=== PATIENT | female | born 1950 | race Asian ===

== ENCOUNTER 2017-08-24 10:26 | Outpatient (CLI) | payer BC | END 2017-08-24 18:02 | disposition home or self-care (01) | LOC: MAMMO 10:26 | DX: Z12.31 Encounter for screening mammogram for malignant neoplasm of breast (principal) ==

== ENCOUNTER 2018-03-10 13:33 | Outpatient (CLI) | payer BC ==
[2018-03-10 14:58] LABS: PARTIAL THROMBOPLASTIN TIME 25.4 SECONDS (24.5-33.6)
== END 2018-03-10 19:41 | disposition home or self-care (01) ==
LOC: LAB 13:33
PROVIDERS: Family Medicine
DX: Z01.89 Encounter for other specified special examinations (principal); Z79.82 Long term (current) use of aspirin
CPT/HCPCS: 85610; 85730

== ENCOUNTER 2018-03-16 14:07 | Outpatient (CLI) | payer BC | END 2018-03-16 23:33 | disposition home or self-care (01) | LOC: RAD 14:07 | DX: Z01.89 Encounter for other specified special examinations (principal) ==

== ENCOUNTER 2018-03-17 09:49 | Outpatient (CLI) | payer BC | END 2018-03-17 21:19 | disposition home or self-care (01) | LOC: MAMMO 09:49 | DX: R92.8 Other abnormal and inconclusive findings on diagnostic imaging of breast (principal); M81.0 Age-related osteoporosis without current pathological fracture; G56.01 Carpal tunnel syndrome, right upper limb | CPT/HCPCS: 95887; 95909 ==

== ENCOUNTER 2018-12-08 10:13 | Outpatient (CLI) | payer BC | END 2018-12-08 19:19 | disposition home or self-care (01) | LOC: MAMMO 10:13 | DX: R92.8 Other abnormal and inconclusive findings on diagnostic imaging of breast (principal) ==

== ENCOUNTER 2019-03-17 15:50 | Outpatient (CLI) | payer BC | END 2019-03-17 15:53 | disposition short-term general hospital (02) | LOC: AMB 15:50 | DX: M54.5 Low back pain (principal); V89.2XXA Person injured in unspecified motor-vehicle accident, traffic, initial encounter; Y92.413 State road as the place of occurrence of the external cause | CPT/HCPCS: A0425; A0429 ==

== ENCOUNTER 2019-03-17 15:56 | Emergency (ER) | payer BC ==
[~2019-03-17] VITALS: Ht 168.9 cm; Wt 101.2 kg
[2019-03-17 19:50] VITALS: BP 146/85; TEMP 98
== END 2019-03-17 19:51 | disposition home or self-care (01) ==
LOC: ED 15:56
DX: M51.26 Other intervertebral disc displacement, lumbar region (principal); S39.012A Strain of muscle, fascia and tendon of lower back, initial encounter; V44.6XXA Car passenger injured in collision with heavy transport vehicle or bus in traffic accident, initial encounter; Y92.89 Other specified places as the place of occurrence of the external cause
CPT/HCPCS: 99283

== ENCOUNTER 2019-05-11 10:32 | Outpatient (CLI) | payer OTHER, BC | END 2019-05-11 23:22 | disposition home or self-care (01) | LOC: MRI 10:32 | DX: M54.6 Pain in thoracic spine (principal); M54.17 Radiculopathy, lumbosacral region ==

== ENCOUNTER 2019-07-14 10:21 | Outpatient (CLI) | payer BC | END 2019-07-14 22:16 | disposition home or self-care (01) | LOC: MAMMO 10:21 | DX: R92.8 Other abnormal and inconclusive findings on diagnostic imaging of breast (principal) ==

== ENCOUNTER 2020-04-30 08:07 | Day surgery (SDC) | payer BC ==
[~2020-04-30] VITALS: Ht 30.5 cm; Wt 0.5 kg
== END 2020-04-30 08:50 | disposition home or self-care (01) ==
LOC: OR 08:07
PROC: 3E0R33Z Introduction of Anti-inflammatory into Spinal Canal, Percutaneous Approach (ICD-10-PCS; principal; 2020-04-30)
PROC: B01BYZZ Fluoroscopy of Spinal Cord using Other Contrast (ICD-10-PCS; 2020-04-30)
DX: M51.16 Intervertebral disc disorders with radiculopathy, lumbar region (principal)
CPT/HCPCS: J1020

== ENCOUNTER 2020-06-10 10:29 | Outpatient (CLI) | payer BC | END 2020-06-10 23:41 | disposition home or self-care (01) | LOC: RAD 10:29 | DX: M25.561 Pain in right knee (principal) ==

== ENCOUNTER 2020-07-08 09:28 | Outpatient (CLI) | payer BC | END 2020-07-08 23:23 | disposition home or self-care (01) | LOC: MRI 09:28 | DX: M25.461 Effusion, right knee (principal) ==

== ENCOUNTER 2020-08-08 14:27 | Outpatient (CLI) | payer BC | END 2020-08-08 19:07 | disposition home or self-care (01) | LOC: MAMMO 14:27 | PROVIDERS: ATTEND Nurse Practitioner Family | DX: Z12.31 Encounter for screening mammogram for malignant neoplasm of breast (principal) ==

== ENCOUNTER 2020-09-19 10:59 | Outpatient (CLI) | payer OTHER | END 2020-09-19 21:24 | disposition home or self-care (01) | LOC: MAMMO 10:59 | PROVIDERS: ATTEND Nurse Practitioner Family | DX: R92.8 Other abnormal and inconclusive findings on diagnostic imaging of breast (principal) ==

== ENCOUNTER 2021-07-15 12:45 | Outpatient (CLI) | payer OTHER | END 2021-07-15 19:24 | disposition home or self-care (01) | LOC: RESP 12:45 | PROVIDERS: ATTEND Family Medicine | DX: G56.03 Carpal tunnel syndrome, bilateral upper limbs (principal); G56.20 Lesion of ulnar nerve, unspecified upper limb | CPT/HCPCS: 95885; 95911 ==

== ENCOUNTER 2021-08-28 10:59 | Outpatient (CLI) | payer OTHER | END 2021-08-28 19:26 | disposition home or self-care (01) | LOC: MAMMO 10:59 | PROVIDERS: ATTEND Family Medicine | DX: Z12.31 Encounter for screening mammogram for malignant neoplasm of breast (principal) ==

== ENCOUNTER 2021-10-09 11:29 | Outpatient (CLI) | payer OTHER | END 2021-10-09 21:22 | disposition home or self-care (01) | LOC: RAD 11:29 | PROVIDERS: ATTEND Nurse Practitioner Family | DX: Z01.818 Encounter for other preprocedural examination (principal) ==

== ENCOUNTER 2021-12-18 10:12 | Outpatient (CLI) | payer OTHER | END 2021-12-18 21:26 | disposition home or self-care (01) | LOC: RAD 10:12 | PROVIDERS: ATTEND Physician Assistant | DX: M25.562 Pain in left knee (principal) ==

== ENCOUNTER 2022-02-13 09:54 | Outpatient (CLI) | payer OTHER | END 2022-02-13 20:26 | disposition home or self-care (01) | LOC: MRI 09:54 | PROVIDERS: ATTEND Physician Assistant | DX: M84.352D Stress fracture, left femur, subsequent encounter for fracture with routine healing (principal) ==

== ENCOUNTER 2022-04-13 11:21 | Outpatient (CLI) | payer OTHER | END 2022-04-13 18:59 | disposition home or self-care (01) | LOC: RAD 11:21 | PROVIDERS: ATTEND Nurse Practitioner Primary Care | DX: Z01.89 Encounter for other specified special examinations (principal) | CPT/HCPCS: 93005 ==

== ENCOUNTER 2022-08-04 11:29 | Outpatient (CLI) | payer OTHER | END 2022-08-04 20:59 | disposition home or self-care (01) | LOC: RAD 11:29 | PROVIDERS: ATTEND Orthopaedic Surgery | DX: M25.562 Pain in left knee (principal) ==

== ENCOUNTER 2022-09-14 14:25 | Outpatient (CLI) | payer OTHER | END 2022-09-14 21:40 | disposition home or self-care (01) | LOC: RAD 14:25 | PROVIDERS: ATTEND Orthopaedic Surgery | DX: M25.562 Pain in left knee (principal) ==

== ENCOUNTER 2023-01-07 09:54 | Outpatient (CLI) | payer BC | END 2023-01-07 19:05 | disposition home or self-care (01) | LOC: MAMMO 09:54 | PROVIDERS: ATTEND Nurse Practitioner Family | DX: Z12.31 Encounter for screening mammogram for malignant neoplasm of breast (principal) ==

== ENCOUNTER 2023-04-05 12:51 | Outpatient (CLI) | payer BC | END 2023-04-05 21:57 | disposition home or self-care (01) | LOC: RAD 12:51 | PROVIDERS: ATTEND Nurse Practitioner Family | DX: M54.17 Radiculopathy, lumbosacral region (principal) ==

== ENCOUNTER 2023-06-21 13:30 | Outpatient (CLI) | payer BC | END 2023-06-21 19:16 | disposition home or self-care (01) | LOC: RAD 13:30 | PROVIDERS: ATTEND Physician Assistant | DX: M25.562 Pain in left knee (principal) ==